=== PATIENT | female | born 1945 | race Caucasian/White ===

== ENCOUNTER 2017-05-09 08:19 | Emergency (ER) | payer MEDICARE, BC ==
[~2017-05-09] VITALS: Ht 165.1 cm; Wt 76.0 kg
[2017-05-09 08:23] VITALS: BP 158/74; PULSE 78; RESP 16; TEMP 98.6; O2SAT 99
--- NOTE | 2017-05-09 08:35 | PD ---
HPI Chief Complaint: Complaint Time Seen by Provider: 08:33 Travel History International Travel<30 days: No Contact w/Intl Traveler<30days: No Traveled to known affect area: No History of Present Illness HPI Patient presents with complaints of urinary frequency and pain for approximately 2 days. Positive hematuria. Denies any nausea vomiting diarrhea or fever. She is not on any blood thinners. PFSH Social History Tobacco Use: No Allergies-Medications (Allergen,Severity, Reaction): Coded Allergies: Macrolide Antibiotics (Verified Allergy, Unknown, 05/09/17) Penicillins (Verified Allergy, Unknown, 05/09/17) Sulfa (Sulfonamide Antibiotics) (Verified Allergy, Unknown, 05/09/17) pollen extracts (Verified Allergy, Unknown, 05/09/17) ticagrelor (Verified Allergy, Unknown, 05/09/17) Reported Meds & Prescriptions Reported Meds & Active Scripts Active Reported Crestor (Rosuvastatin Calcium) 20 Mg Tab 20 Mg PO HS Omeprazole 20 Mg Cap [place]-3 Fish Oil/Vitamin (Fish Oil-Cholecalciferol) 1,000-1,000 Mg Cap 1 Cap PO DAILY Montelukast (Montelukast Sodium) 10 Mg Tab 10 Mg PO HS Claritin (Loratadine) 10 Mg Cap 10 Mg PO DAILY Duoneb (Ipratropium-Albuterol Neb) 0.5-2.5 Mg/3 Ml Neb 1 Nebule INH Q4HR NEB Gabapentin 300 Mg Cap 300 Mg PO TID Fluconazole 150 Mg Tab 150 Mg PO ONCE Calcium/Vitamin D (Calcium Carbonate-Vitamin D) 500-400 Mg-Unit Tab 1 Tab PO BID Dymista Nasal [place] (Azelastine-Fluticasone Nasal [place]) 137-50 Mcg [place] 1 [place] EACH NARE BID To each nostril. Atenolol 25 Mg Tab 25 Mg PO DAILY Aspirin 81 Mg Chew 81 Mg CHEW DAILY Proventil Hfa 6.7 GM Inh (Albuterol Sulfate) 90 Mcg/Act Aer 2 Puff INH Q4-6H PRN Tylenol (Acetaminophen) 325 Mg Tab 325 Mg PO Q6H Review of Systems General / Constitutional: No: Fever Eyes: No: Visual changes HENT: No: Headaches Cardiovascular: No: Chest Pain or Discomfort Respiratory: No: Shortness of Breath Gastrointestinal: No: Abdominal Pain Genitourinary: Positive: Urgency, Frequency, Dysuria, Hematuria Musculoskeletal: No: Pain Skin: No Rash Neurologic: No: Weakness Psychiatric: No: Depression Endocrine: No: Polydipsia Hematologic/Lymphatic: No: Easy Bruising Physical Exam Narrative GENERAL: Well-nourished, well-developed patient. SKIN: Focused skin assessment warm/dry. HEAD: Normocephalic. EYES: No scleral icterus. No injection or drainage. NECK: Supple, trachea midline. No JVD or lymphadenopathy. CARDIOVASCULAR: Regular rate and rhythm without murmurs, gallops, or rubs. RESPIRATORY: Breath sounds equal bilaterally. No accessory muscle use. GASTROINTESTINAL: Abdomen soft, non-tender, nondistended. MUSCULOSKELETAL: No cyanosis, or edema. BACK: Nontender without obvious deformity. No CVA tenderness. Data Data Last Documented VS Vital Signs Date Time Temp Pulse Resp B/P (MAP) Pulse Ox O2 Delivery O2 Flow Rate FiO2 05/09/17 08:23 98.6 78 16 158/74 (102) 99 Orders Orders Urinalysis - C+S If Indicated (05/09/17 08:24) Urine Culture (05/09/17 08:33) Labs Laboratory Tests Test 05/09/17 08:33 Urine Collection Type CLEAN CATCH Urine Color LIGHT-RED Urine Turbidity CLOUDY Urine pH 7.[address] 1.017 Urine Protein 100 mg/dL Urine Glucose (UA) 100 mg/dL Urine Ketones NEG mg/dL Urine Occult Blood LARGE Urine Nitrite POS Urine Bilirubin NEG Urine Leukocyte Esterase LARGE Urine RBC INNUM /hpf Urine WBC 25-49 /hpf Urine WBC Clumps MOD Microscopic Urinalysis Comment CULTURE INDICATED MDM Medical Decision Making Medical Screen Exam Complete: Yes Emergency Medical Condition: Yes Differential Diagnosis UTI, cystitis, urethritis, nephritis Narrative Course Assessment plan discussed patient at bedside. Diagnosis Primary Impression: UTI (urinary tract infection) Qualified Codes: N39.0 - Urinary tract infection, site not specified; R31.9 - Hematuria, unspecified Patient Instructions: General Instructions Additional Instructions: Encourage good fluid intake. Encourage a cranberry supplement. Return to the emergency room with any onset of new symptoms. Follow up with PCP. Med/Other Pt SpecificInfo: Prescription(s) given Scripts Levofloxacin (Levaquin) 250 Mg Tablet 250 MG PO DAILY for Infection for 5 Days, #5 TAB 0 Refills Prov: Papi Raygoza MD 05/09/17 Disposition: 01 DISCHARGE HOME Condition: Good Papi Raygoza MD May 09, 2017 08:35
[2017-05-09 08:56] LABS: BLOOD, URINE LARGE (NEG); GLUCOSE,URINE 100 mg/dL (NEG); KETONE, URINE NEG (NEG); NITRITE,URINE POS (NEG); URINE LEUKOCYTE ESTERASE LARGE (NEG)
[2017-05-09 08:58] LABS: BILIRUBIN, URINE NEG (NEG)
[2017-05-09] MEDS ORDERED: TYLE325T PO (08:58)
[2017-05-09] MEDS ORDERED: ALBU6.7H INH (08:58)
[2017-05-09] MEDS ORDERED: AZEL137S EACH NARE (08:58)
[2017-05-09] MEDS ORDERED: CALC500T24 PO (08:58)
[2017-05-09] MEDS ORDERED: OMEP20CA2 (08:58)
[2017-05-09] MEDS ORDERED: FLUC150T PO (08:58)
[2017-05-09] MEDS ORDERED: CLAR10CA3 PO (08:58)
[2017-05-09] MEDS ORDERED: ROSU20 PO (08:58)
[2017-05-09] MEDS ORDERED: IPRASOL INH (08:58)
[2017-05-09] MEDS ORDERED: MONT10TA4 PO (08:58)
[2017-05-09] MEDS ORDERED: GABA300C5 PO (08:58)
[2017-05-09] MEDS ORDERED: ATEN25TA PO (08:58)
[2017-05-09] MEDS ORDERED: OMEGCAP PO (08:58)
[2017-05-09] MEDS ORDERED: ASPI-516 CHEW (08:58)
[2017-05-09 08:59] LABS: URINE COLOR LIGHT-RED (YELLW/STRAW)
[2017-05-09 09:00] LABS: RBC, URINE INNUM /hpf (0-3)
[2017-05-09 09:01] LABS: WHITE BLOOD CELL CLUMPS MOD
[2017-05-09] MEDS ORDERED: LEVA250T14 PO (09:08)
[2017-05-09 09:18] VITALS: BP 131/64
== END 2017-05-09 09:22 | disposition home or self-care (01) ==
LOC: PHED 08:19
DX: N39.0 Urinary tract infection, site not specified (principal); B95.61 Methicillin susceptible Staphylococcus aureus infection as the cause of diseases classified elsewhere; Z88.0 Allergy status to penicillin; Z88.2 Allergy status to sulfonamides
CPT/HCPCS: 81001; 87077; 87086; 87186; 99283

== ENCOUNTER 2017-06-20 10:38 | Emergency (ER) | payer MEDICARE, BC ==
[~2017-06-20] VITALS: Ht 165.1 cm; Wt 76.0 kg
[~2017-06-20 10:38] MED LIST: ALBU6.7H INH; ASPI-516 CHEW; ATEN25TA PO; AZEL137S EACH NARE; CALC500T24 PO; CLAR10CA3 PO; FLUC150T PO; GABA300C5 PO; IPRASOL INH; LEVA250T14 PO; MONT10TA4 PO; OMEGCAP PO; OMEP20CA2; ROSU20 PO; TYLE325T PO
[2017-06-20 10:45] VITALS: BP 154/70; PULSE 70; RESP 16; TEMP 98; O2SAT 96
[2017-06-20 11:07] LABS: BILIRUBIN, URINE NEG (NEG); BLOOD, URINE LARGE (NEG); GLUCOSE,URINE NEG (NEG); KETONE, URINE NEG (NEG); NITRITE,URINE POS (NEG); URINE COLOR YELLOW (YELLW/STRAW); URINE LEUKOCYTE ESTERASE MOD (NEG)
[2017-06-20 11:11] LABS: BACTERIA, URINE MOD /hpf; RBC, URINE 0-3 /hpf (0-3)
[2017-06-20] MEDS ORDERED: MACR100C2 PO (11:27)
--- NOTE | 2017-06-20 11:27 | PD ---
HPI Chief Complaint: Complaint Time Seen by Provider: 11:12 Travel History International Travel<30 days: No Contact w/Intl Traveler<30days: No Traveled to known affect area: No History of Present Illness HPI 71yo F with PMH of CAD, Gordon's Palsy here with c/o increased urinary frequency and dysuria that just started today. Pt said it feels like her UTI so she came in immediately. Denies any fever, chest pain, sob, n/v, abdominal pain, focal weakness or numbness. PFSH Past Medical History Asthma: Yes (RELATED TO SEASONAL ALLERGIES) High Cholesterol: Yes Genitourinary: Yes (UTIs, YEAST INFECTIONS, BLADDER TUCK.) Hypertension: Yes Myocardial Infarction: Yes Tetanus Vaccination: < 5 Years Influenza Vaccination: Yes Menopausal: Yes Past Surgical History Coronary Stent: Yes Genitourinary Surgery: Yes (BLADDER TUCK) Other Surgery: Yes (HERNIA REPAIR) Social History Alcohol Use: No Tobacco Use: No Substance Use: No Allergies-Medications (Allergen,Severity, Reaction): Coded Allergies: Macrolide Antibiotics (Verified Allergy, Unknown, 06/20/17) Penicillins (Verified Allergy, Unknown, 06/20/17) Sulfa (Sulfonamide Antibiotics) (Verified Allergy, Unknown, 06/20/17) pollen extracts (Verified Allergy, Unknown, 06/20/17) ticagrelor (Verified Allergy, Unknown, 06/20/17) Reported Meds & Prescriptions Reported Meds & Active Scripts Active Reported Crestor (Rosuvastatin Calcium) 20 Mg Tab 20 Mg PO HS Omeprazole 20 Mg Cap [place]-3 Fish Oil/Vitamin (Fish Oil-Cholecalciferol) 1,000-1,000 Mg Cap 1 Cap PO DAILY Montelukast (Montelukast Sodium) 10 Mg Tab 10 Mg PO HS Claritin (Loratadine) 10 Mg Cap 10 Mg PO DAILY Duoneb (Ipratropium-Albuterol Neb) 0.5-2.5 Mg/3 Ml Neb 1 Nebule INH Q4HR NEB Gabapentin 300 Mg Cap 300 Mg PO TID Fluconazole 150 Mg Tab 150 Mg PO ONCE Calcium/Vitamin D (Calcium Carbonate-Vitamin D) 500-400 Mg-Unit Tab 1 Tab PO BID Dymista Nasal [place] (Azelastine-Fluticasone Nasal [place]) 137-50 Mcg [place] 1 [place] EACH NARE BID To each nostril. Atenolol 25 Mg Tab 25 Mg PO DAILY Aspirin 81 Mg Chew 81 Mg CHEW DAILY Proventil Hfa 6.7 GM Inh (Albuterol Sulfate) 90 Mcg/Act Aer 2 Puff INH Q4-6H PRN Tylenol (Acetaminophen) 325 Mg Tab 325 Mg PO Q6H Review of Systems Except as stated in HPI: all other systems reviewed are Neg Physical Exam Narrative GENERAL: 71yo F not in distress. SKIN: Focused skin assessment warm/dry. HEAD: Atraumatic. Normocephalic. EYES: Pupils equal and round. No scleral icterus. No injection or drainage. ENT: No nasal bleeding or discharge. Mucous membranes pink and moist. NECK: Trachea midline. No JVD. CARDIOVASCULAR: Regular rate and rhythm. No murmur appreciated. RESPIRATORY: No accessory muscle use. Clear to auscultation. Breath sounds equal bilaterally. GASTROINTESTINAL: Abdomen soft, non-tender, nondistended. No rebound tenderness or guarding. MUSCULOSKELETAL: No obvious deformities. No clubbing. No cyanosis. No edema. NEUROLOGICAL: Awake and alert. Left cranial 7 palsy. Motor grossly within normal limits in all extremities. Sensation intact. Normal speech. PSYCHIATRIC: Appropriate mood and affect; insight and judgment normal. Data Data Last Documented VS Vital Signs Date Time Temp Pulse Resp B/P (MAP) Pulse Ox O2 Delivery O2 Flow Rate FiO2 06/20/17 10:45 98.0 70 16 154/70 (98) 96 Orders Orders Urinalysis - C+S If Indicated (06/20/17 10:44) Urine Culture (06/20/17 11:00) Labs Laboratory Tests Test 06/20/17 11:00 Urine Collection Type CLEAN CATCH Urine Color YELLOW Urine Turbidity SL CLOUDY Urine pH 7.0 Urine Specific [place] 1.010 Urine Protein NEG mg/dL Urine Glucose (UA) NEG mg/dL Urine Ketones NEG mg/dL Urine Occult Blood LARGE Urine Nitrite POS Urine Bilirubin NEG Urine Urobilinogen 0.2 MG/DL Urine Leukocyte Esterase MOD Urine RBC 0-3 /hpf Urine WBC 25-49 /hpf Urine Bacteria MOD /hpf Microscopic Urinalysis Comment CULTURE INDICATED MDM Medical Decision Making Medical Screen Exam Complete: Yes Emergency Medical Condition: Yes Differential Diagnosis UTI Narrative Course 71yo F with urinary complaints. UA showed positive nitrite. WBC 25-49. Pt given macrobid. She is very well appearing without any other symptoms. Return precautions given. Diagnosis Primary Impression: UTI (urinary tract infection) Qualified Codes: N39.0 - Urinary tract infection, site not specified; R31.9 - Hematuria, unspecified Patient Instructions: General Instructions Departure Forms: Tests/Procedures Additional Instructions: Please follow up with your primary care physician in 3-7 days. Return to the ED if symptoms worsen. Med/Other Pt SpecificInfo: Prescription(s) given Scripts Nitrofurantoin Monohydrate Macrocrystals (Macrobid) 100 Mg Cap 100 MG PO BID for Infection for 7 Days, #14 CAP 0 Refills Prov: Charity Lyle DO 06/20/17 Disposition: 01 DISCHARGE HOME Condition: Stable Charity Lyle DO Jun 20, 2017 11:27
[2017-06-20] MEDS ORDERED: NITROFURANTOIN MONOHYD MACROCR 100 MG CAP PO ONE (11:30)
== END 2017-06-20 12:13 | disposition home or self-care (01) ==
LOC: PHEFT 10:38
DX: N39.0 Urinary tract infection, site not specified (principal); B96.20 Unspecified Escherichia coli [E. coli] as the cause of diseases classified elsewhere; I25.10 Atherosclerotic heart disease of native coronary artery without angina pectoris; G51.0 Bell's palsy; J45.909 Unspecified asthma, uncomplicated; E78.00 Pure hypercholesterolemia, unspecified; I10 Essential (primary) hypertension; I25.2 Old myocardial infarction; Z79.82 Long term (current) use of aspirin
CPT/HCPCS: 81001; 87077; 87086; 87186; 99283